=== PATIENT | female | born 1940 | race Caucasian/White ===

== ENCOUNTER 2024-01-20 15:52 | Outpatient (CLI) | payer MEDICARE, OTHER | END 2024-01-20 23:59 | disposition critical access hospital (66) | LOC: EMS 15:52 | DX: M25.551 Pain in right hip (principal); W01.0XXA Fall on same level from slipping, tripping and stumbling without subsequent striking against object, initial encounter; Y93.K1 Activity, walking an animal; Y92.832 Beach as the place of occurrence of the external cause | CPT/HCPCS: A0425; A0429 ==

== ENCOUNTER 2024-01-20 16:03 | Inpatient (IN) | payer MEDICARE, OTHER ==
--- NOTE | 2024-01-20 16:17 | ED Physician Documentation ---
PD HPI LOWER EXT INJURY - Stated complaint Stated Complaint: GLF,R HIP PX - History obtained from History obtained from: Patient, EMS - History of Present Illness PD HPI LOW EXT INJURY LOCATION: Right - Additional information Additional information: 83-year-old woman who says she is medically healthy visiting from [place]. [place] [employer] [place] and her dog pulled her and she fell onto her right hip with moderate pain. No other injuries. PD PAST MEDICAL HISTORY - Present Medications Home Medications: Ambulatory Orders Medication Instructions Recorded Confirmed Furosemide [Lasix] 1 tab PO DAILY 01/20/24 01/20/24 - Allergies Allergies/Adverse Reactions: Allergies Allergy/AdvReac Type Severity Reaction Status Date / Time No Known Drug Allergies Allergy Verified 01/20/24 16:18 - Social History Does the pt smoke?: Yes Smoking Status: Current every day smoker PD ED PE NORMAL - Vitals Vital signs reviewed: Yes - General General: Alert and oriented X 3, No acute distress - Respiratory Respiratory: No respiratory distress - Abdomen Abdomen: Normal bowel sounds, Soft, Non tender - Extremities Extremities: Other (Exquisitely tender about the right hip. She cannot range it at all due to pain.) - Neuro Neuro: Alert and oriented X 3 Results - Vitals Vitals: Vital Signs - 24 hr 01/20/24 01/20/24 16:11 18:13 Temperature 36.4 C L Heart Rate 65 67 Respiratory 14 16 Rate Blood Pressure 143/56 H 132/57 H O2 Saturation 100 95 Oxygen O2 Source Room air - EKG (time done) 1739 EKG releavant findings:: EKG personally interpreted by author of this note. Relevant findings are: Rate: Rate (enter#) (78) Rhythm: NSR, ASHUTOSH Bivins: RAD Intervals: Normal HI QRS: Normal Ischemia: Non specific changes - Labs Labs: Laboratory Tests 01/20/24 01/20/24 01/20/24 17:05 17:05 17:05 WBC 9.2 RBC 4.52 Hgb 13.3 Hct 42.5 MCV 94.0 MCH 29.4 MCHC 31.3 L RDW 13.7 Plt Count 309 MPV 11.0 H Neut # (Auto) 5.9 Lymph # (Auto) 2.3 Kane # (Auto) 0.8 Eos # (Auto) 0.1 Baso # (Auto) 0.1 Absolute Nucleated RBC 0.00 Nucleated RBC % 0.0 PT 11.5 INR 1.0 Sodium 137 Potassium 3.9 Chloride 105 Carbon Dioxide 24 Anion Gap 8.0 BUN 16 Creatinine 0.9 Estimated GFR (MDRD) 60 L Glucose 103 Calcium 9.8 Total Bilirubin 0.6 AST 12 ALT 6 L Alkaline Phosphatase 46 Total Protein 7.3 Albumin 4.1 Globulin 3.2 Albumin/Globulin Ratio 1.3 - Rads (name of study) Right hip x-ray demonstrates a displaced and comminuted right femoral neck fracture Relevant Findings:: Final report received, EMP independent interpretation of test PD Medical Decision Making - ED course ED course: This is a 83-year-old woman who had a fall and has an isolated right hip injury with fracture on CT. Spoke with Dr Grant, orthopedist who defers to medicine for admission. We are at shift change so I will call them after shift change. Workup in the emergency department demonstrated unremarkable CBC, INR, and CMP. She received initially on oxycodone and then after x-ray wanted something stronger and received IV Dilaudid with improvement in her pain. Subsequently I am informed that there are no inpatient beds available and she is boarding in the emergency department overnight pending surgery in the morning. Dr Grant did request that we order a CT of the pelvis to better evaluate the fracture preoperatively. Departure - Departure Disposition: [facility] DC/Xfer Clinical Impression: Fractured femoral neck Qualifiers: Encounter type: initial encounter Fracture type: closed Laterality: right Qualified Code(s): S72.001A - Fracture of unspecified part of neck of right femur, initial encounter for closed fracture Condition: Serious
[2024-01-20] MEDS: oxyCODONE 5 MG TABLET PO STA (16:45)
--- NOTE | 2024-01-20 16:47 | XRAY Report ---
PROCEDURE: Hip w/Pelvis 2-3V RT INDICATIONS: hip inj TECHNIQUE: 2 views of the hip were acquired. COMPARISON: None. FINDINGS: Bones: Displaced and comminuted fracture of the right femoral neck, possibly intertrochanteric. Ther e is superior displacement of the distal fracture fragment. Diffusely decreased osseous position. Deg enerative changes of the visualized lower lumbar spine and pubic symphysis. No suspicious bony lesion s. Soft tissues: No suspicious soft tissue calcifications or masses. IMPRESSION: Displaced and comminuted right femoral neck fracture. Reviewed by: Joe Zhong MD on 01/20/2024 4:46 PM PDT Approved by: Joe Zhong MD on 01/20/2024 4:46 PM PDT Station ID: [id number]
[2024-01-20 17:15] LABS: BASOPHILS # (AUTO) 0.1 10^3/uL (0.0-0.1); EOSINOPHILS # (AUTO) 0.1 10^3/uL (0.0-0.7); EOSINOPHILS % (AUTO) 1.4 %; HCT - HEMATOCRIT 42.5 % (37.0-47.0); HGB - HEMOGLOBIN 13.3 g/dL (12.0-16.0); LYMPHOCYTES # (AUTO) 2.3 10^3/uL (1.5-3.5); LYMPHOCYTES % (AUTO) 25.2 %; MEAN CORPUSCULAR HEMOGLOBIN 29.4 pg (27.0-31.0); MEAN CORPUSCULAR HGB CONC 31.3 g/dL (32.0-36.0); MONOCYTES # (AUTO) 0.8 10^3/uL (0.0-1.0); MONOCYTES % (AUTO) 8.7 %; NEUTROPHILS # (AUTO) 5.9 10^3/uL (1.5-6.6); NEUTROPHILS % (AUTO) 63.5 %; PLT - PLATELET COUNT 309 10^3/uL (130-450); RED BLOOD COUNT 4.52 10^6/uL (4.20-5.40); RED CELL DISTRIBUTION WIDTH 13.7 % (12.0-15.0); WHITE BLOOD COUNT 9.2 x10^3/uL (4.8-10.8)
[2024-01-20 17:22] LABS: PT - PROTHROMBIN TIME 11.5 secs (9.9-12.6)
[2024-01-20 17:34] LABS: ALBUMIN 4.1 g/dL (3.2-5.5); ALBUMIN/GLOBULIN RATIO 1.3 (1.0-2.2); BILIRUBIN,TOTAL 0.6 mg/dL (0.2-1.0); CALCIUM 9.8 mg/dL (8.5-10.3); CREATININE 0.9 mg/dL (0.6-1.3); POTASSIUM 3.9 mmol/L (3.5-4.5); TOTAL PROTEIN 7.3 g/dL (6.4-8.9)
[2024-01-20] MEDS: HYDROmorphone 1 MG/ML CARPUJECT IVP STA (17:47)
[2024-01-20] MEDS ORDERED: ACETAMINOPHEN 500 MG TABLET PO PRN (18:55)
--- NOTE | 2024-01-20 19:43 | CT Report ---
PROCEDURE: Pelvis WO INDICATIONS: Hip fracture, surgeons request TECHNIQUE: Noncontrast 3 mm axial sections acquired through the bony pelvis. For radiation dose reduction, the f ollowing was used: automated exposure control, adjustment of mA and/or kV according to patient size. COMPARISON: Right hip radiographs 01/20/2024. FINDINGS: Image quality: Excellent. Bones: There is a comminuted mildly displaced intertrochanteric fracture of the right proximal femur with angulation and mild displacement of fracture fragments. No additional osseous fracture identifi ed. Bones are osteopenic. Degenerative changes are seen in the spine, sacral iliac joints, hips, and pubic symphysis. 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 Soft tissues: Soft tissue edema and hemorrhage are seen surrounding the proximal femur extending int o the vastus musculature. No acute intrapelvic abnormality is seen. Mild ectasia of the abdominal aor ta measuring up to 2.7 cm in diameter. IMPRESSION: Comminuted mildly displaced intertrochanteric fracture of the right proximal femur. Reviewed by: Amador Hackett MD on 01/20/2024 7:41 PM PDT Approved by: Amador Hackett MD on 01/20/2024 7:41 PM PDT Station ID: [id number]
[2024-01-20] MEDS: HYDROmorphone 1 MG/ML CARPUJECT IVP PRN (20:50)
--- NOTE | 2024-01-20 21:32 | HISTORY & PHYSICAL EXAMINATION ---
HPI - Admitted From Admitted from: ED - History Obtained From History obtained from: Patient Exam limitations: Clinical condition - History of Present Illness HPI Comment/Other: This is a 83-year-old woman admitted because of a fall, inability to bear weight on right leg with pain being quite marked in the right groin and upper thigh. She was walking her dog and took a fall on the beach. She has been evaluated in the emergency room, does not seem to recall the name of the beach. She states that she lives with her son. She has been in relatively good health but has been a chronic smoker for many years and has been quite thin. She is an ambulator. She denies any other areas of pain other than the right hip. She denies chest pain, shortness of breath, syncope or loss of consciousness associated with the fall. She describes a mechanical type fall associated with dog walkingI PMH/PSH - Past Medical History Cardiovascular: positive: Congestive heart failure Respiratory: positive: None Neuro: positive: None Endocrine/Autoimmune: positive: None GI: positive: None VIRTUAL ASSISTANT: positive: None : positive: None HEENT: positive: None Psych: positive: None Musculoskeletal: positive: None Derm: positive: None MRSA Hx?: No Social & Family Hx - Social History Does the pt smoke?: Yes Smoking Status: Current every day smoker Does the pt drink ETOH?: Yes ETOH Use: Wine Does the pt have substance abuse?: No - POLST Patient has POLST: No Meds/Allgy - Home Medications Home Medications: Ambulatory Orders Medication Instructions Recorded Confirmed Furosemide [Lasix] 1 tab PO DAILY 01/20/24 01/20/24 - Allergies Allergies/Adverse Reactions: Allergies Allergy/AdvReac Type Severity Reaction Status Date / Time No Known Drug Allergies Allergy Verified 01/20/24 16:18 Exam - Vital Signs Vital Signs: Vital Signs x48h Temp Pulse Resp BP Pulse Ox 01/20/24 18:13 67 16 132/57 H 95 01/20/24 16:11 36.4 C L 65 14 143/56 H 100 - Physical Exam General Appearance: positive: Alert, Mild distress Respiratory: positive: Chest non-tender, No respiratory distress Cardiovascular: positive: Regular rate & rhythm Peripheral Pulses: positive: 1+ Abdomen: positive: Non-tender Neurologic/Psychiatric: positive: Motor nml, Sensation nml, Disoriented to place Comments/Other: The right leg is shortened, externally rotated, marked pain with any attempted passive movement of right hip. Neurovascular is intact, pulses reduced but neurovascular compromise to the right footShe has reduced body mass index and sarcopenia Results - Lab Results Fish Bones: 01/20/24 17:05 01/20/24 17:05 Other Lab Results: Lab Results x24hrs 01/20/24 01/20/24 01/20/24 Range/Units 17:05 17:05 17:05 WBC 9.2 (4.8-10.8) x10^3/uL RBC 4.52 (4.20-5.40) 10^6/uL Hgb 13.3 (12.0-16.0) g/dL Hct 42.5 (37.0-47.0) % MCV 94.0 (81.0-99.0) fL MCH 29.4 (27.0-31.0) pg MCHC 31.3 L (32.0-36.0) g/dL RDW 13.7 (12.0-15.0) % Plt Count 309 (130-450) 10^3/uL MPV 11.0 H (7.9-10.8) fL Neut # (Auto) 5.9 (1.5-6.6) 10^3/uL Lymph # (Auto) 2.3 (1.5-3.5) 10^3/uL [place] # (Auto) 0.8 (0.0-1.0) 10^3/uL Eos # (Auto) 0.1 (0.0-0.7) 10^3/uL Baso # (Auto) 0.1 (0.0-0.1) 10^3/uL Absolute Nucleated RBC 0.00 x10^3/uL Nucleated RBC % 0.0 /100WBC PT 11.5 (9.9-12.6) secs INR 1.0 (0.8-1.2) Sodium 137 (135-145) mmol/L Potassium 3.9 (3.5-4.5) mmol/L Chloride 105 (101-111) mmol/L Carbon Dioxide 24 (21-32) mmol/L Anion Gap 8.0 (6-13) BUN 16 (6-20) mg/dL Creatinine 0.9 (0.6-1.3) mg/dL Estimated GFR (MDRD) 60 L (>89) Glucose 103 (74-104) mg/dL Calcium 9.8 (8.5-10.3) mg/dL Total Bilirubin 0.6 (0.2-1.0) mg/dL AST 12 (10-42) IU/L ALT 6 L (10-60) IU/L Alkaline Phosphatase 46 (42-121) IU/L Total Protein 7.3 (6.4-8.9) g/dL Albumin 4.1 (3.2-5.5) g/dL Globulin 3.2 (2.1-4.2) g/dL Albumin/Globulin Ratio 1.3 (1.0-2.2) - Diagnostic Imaging Results Diagnostic Imaging Results: positive: Read independently (Displaced basilar femoral neck/intertrochanteric fracture right hip) Impression/Plan - Problem List Problem List: 1. Displaced intertrochanteric/basilar femoral neck fracture right hip 2. Chronic cigarette smoker/COPD 3. Low body mass index and sarcopenia Shared decision making performed. This is a serious injury that is generally surgically treated. The risks of surgery are generally felt to be less and the risk of nonoperative treatment. However, the risk include myocardial infarction, stroke, pulmonary embolism, infection, bleeding, weakness and difficulty with ambulation. The patient prefers to undergo surgery which would consist of open reduction internal fixation with an intramedullary hip nail to right hip and femur. She will have preoperative medical evaluation and hopefully be able to have surgery for her right hip tomorrow
[2024-01-21] MEDS: ONDANSETRON 4 MG/2 ML VIAL IVP PRN ×2 (01:00→14:16)
[2024-01-21] MEDS: oxyCODONE 5 MG TABLET PO PRN ×2 (01:11→19:50)
[2024-01-21] MEDS: SODIUM CHLORIDE 0.9% 1,000 ML IV STA (01:12)
--- NOTE | 2024-01-21 04:46 | ED Physician Documentation ---
ED Addendum - Addendum Addendum: 01/21/24 Patient care assumed at shift change. She is boarding in the emergency department with a hip fracture and awaiting available admission bed with plans for surgery in the morning. Patient started on maintenance fluids as she is NPO. No acute events overnight. Patient signed out to oncoming provider at shift change.
[2024-01-21] MEDS: LIDOCAINE PATCH 5% TOP STA (06:53)
[2024-01-21] MEDS: PANTOPRAZOLE 40 MG TABLET PO SCH (07:38)
--- NOTE | 2024-01-21 08:02 | ANESTHESIA ---
Pre-Anesthesia VS, & Labs - Diagnosis Hip Fracture - Procedure Right Wil Fracture Vital Signs: Temp Pulse Resp BP Pulse Ox O2 Flow Rate 36.4 C L 70 12 144/61 H 100 2 01/20/24 16:11 01/21/24 06:56 01/21/24 06:56 01/21/24 06:56 01/21/24 06:56 01/21/24 06:56 Height: 5 ft 4 in Weight (kg): 48.988 kg Body Mass Index: 18.5 BMI Classification: Normal - Is Patient ?: No - Lab Results Current Lab Results: Laboratory Tests 01/20/24 17:05: Sodium 137, Potassium 3.9, Chloride 105, Carbon Dioxide 24, Anion Gap 8.0, BUN 16, Creatinine 0.9, Estimated GFR (MDRD) 60 L, Glucose 103, Calcium 9.8, Total Bilirubin 0.6, AST 12, ALT 6 L, Alkaline Phosphatase 46, Tot al Protein 7.3, Albumin 4.1, Globulin 3.2, Albumin/Globulin Ratio 1.3 01/20/24 17:05: PT 11.5, INR 1.0 01/20/24 17:05: WBC 9.2, RBC 4.52, Hgb 13.3, Hct 42.5, MCV 94.0, MCH 29.4, MCHC 31.3 L, RDW 13.7, Plt Count 309, MPV 11.0 H, Neut # (Auto) 5.9, Lymph # (Auto) 2.3, [place] # (Auto) 0.8, Eos # (Auto) 0.1, Baso # (Auto) 0.1, Absolute Nucleated RBC 0.00, Nucleated RBC % 0.0 Fish Bones: 01/20/24 17:05 01/20/24 17:05 Home Medications and Allergies Home Medications: Ambulatory Orders Furosemide [Lasix] 1 tab PO DAILY 01/20/24 Active Medications Acetaminophen (Acetaminophen 500 Mg Tablet) 1,000 mg PO Q6H PRN PRN Reason: Mild Pain Or Fever>38c(100.4f) Hydromorphone HCl (Hydromorphone 1 Mg/Ml Carpuject) 1 mg IVP Q2H PRN PRN Reason: pain >4 Last Admin: 01/21/24 05:18 Dose: 1 mg Sodium Chloride (Normal Saline 0.9%) 1,000 mls @ 100 mls/hr IV .Q10H STA Stop: 01/21/24 11:03 Last Admin: 01/21/24 01:12 Dose: 100 mls/hr Ondansetron HCl (Ondansetron 4 Mg/2 Ml Vial) 4 mg IVP Q6HR PRN PRN Reason: Nausea / Vomiting Last Admin: 01/21/24 01:00 Dose: 4 mg Oxycodone HCl (Oxycodone 5 Mg Tablet) 5 mg PO Q6H PRN PRN Reason: Moderate to Severe pain (4-10) Last Admin: 01/21/24 01:27 Dose: 5 mg Pantoprazole Sodium (Pantoprazole 40 Mg Tablet) 40 mg PO QDAC LINDSAY Last Admin: 01/21/24 07:38 Dose: Not Given Furosemide [Lasix] 1 tab PO DAILY 01/20/24 Allergies/Adverse Reactions: Allergies Allergy/AdvReac Type Severity Reaction Status Date / Time No Known Drug Allergies Allergy Verified 01/20/24 16:18 Anes History & Medical History - Anesthetic History Family history of Anesthesia Complications: Denies - Medical History Cardiovascular: reports: Congestive heart failure Pulmonary: reports: None Gastrointestinal: reports: None Urinary: reports: None Neuro: reports: None Musculoskeletal: reports: None Endocrine/Autoimmune: reports: None Blood Disorders: reports: None Skin: reports: None Smoking Status: Current every day smoker Other Past Medical History: States Cyst removal in past Exam General: Alert, Oriented x3, Cooperative Dental: Dentures full Upper, Dentures full Lower Mouth Openin Fingerbreadth Mallampati classification: II Thyromental Distance: 4-6 cm (Acting appropriatley given condition.) Plan Anesthesia Type: Spinal, MAC Consent for Procedure(s) Verified and Reviewed: Yes Code Status: Attempt Resuscitation ASA classification: 3-Severe systemic disease Is this case an emergency?: No
[2024-01-21] MEDS ORDERED: fentaNYL 100 MCG/2 ML VIAL IVP PRN ×2 (08:05→13:16)
[2024-01-21] MEDS ORDERED: ATROPINE ABBOJECT 1 MG/10 ML SYRINGE IVP PRN ×2 (08:05→13:16)
[2024-01-21] MEDS ORDERED: NALOXONE 0.4 MG/ML VIAL IVP PRN ×2 (08:05→13:16)
[2024-01-21] MEDS ORDERED: ePHEDrine 50 MG/ML VIAL IVP PRN ×2 (08:05→13:16)
[2024-01-21] MEDS ORDERED: MORPHINE 2 MG/ML CARPUJECT IVP PRN ×2 (08:05→13:16)
[2024-01-21] MEDS: LACTATED RINGERS 1,000 ML IV SCH (09:57)
[2024-01-21] MEDS ORDERED: BUPIVACAINE 0.25% PF 30 ML VIAL ONE (11:03)
[2024-01-21] MEDS ORDERED: PROPOFOL 500 MG/50 ML 500 MG/50 ML VIAL ONE (11:12)
--- NOTE | 2024-01-21 11:12 | PHARMACY PROGRESS NOTE ---
- Best Possible Medication History Admit Date and Time: Processed by: Pharmacy Medications reviewed in ED?: Yes Medication History completed: Yes Patient Interview: Pt unable to participate Secondary Source(s): Pharmacy records As the person ultimately responsible for medication therapy, providers are able to order a medication from an existing home medication list in [facility] via the "Reconcile Routine" prior to Confirmation of that medication by it support manager. Such practice is discouraged except when the physician, in their clinical judgment, deems that a medical need exists for a medication without regard to p revious use.
[2024-01-21] MEDS ORDERED: PROPOFOL 200 MG/20 ML VIAL IVP ONE (11:28)
--- NOTE | 2024-01-21 11:43 | ED Physician Documentation ---
ED Addendum - Addendum Addendum: 01/21/24 11:42 The patient had been comfortable here in the ER. She was slated for surgery for repair of her hip. The OR team and anesthesia preop to her and she is just now heading to the OR for surgery and then will go to the floor for inpatient. Disposition: Same-day surgery for hip repair Diagnosis: 1. Unintentional fall 2. Hip fracture
[2024-01-21] MEDS ORDERED: ceFAZolin 1 GM VIAL ONE (11:52)
[2024-01-21] MEDS ORDERED: ePHEDrine 50 MG/ML VIAL IVP ONE ×2 (12:24→12:25)
[2024-01-21] MEDS ORDERED: PHENYLEPHRINE HCL 0.5 MG/5 ML AMPULE ONE (12:25)
[2024-01-21] MEDS ORDERED: TRANEXAMIC ACID 1,000 MG/10 ML VIAL ONE (12:26)
[2024-01-21] MEDS ORDERED: PHENYLEPHRINE 20 MG in SODIUM CHLORIDE 0.9% 248 ML IV STA (12:48)
[2024-01-21] MEDS ORDERED: HYDROmorphone 0.5 MG/0.5 ML SYRINGE IVP PRN (13:16)
[2024-01-21] MEDS ORDERED: METOCLOPRAMIDE 10 MG/2 ML VIAL IVP PRN (13:16)
[2024-01-21] MEDS ORDERED: ONDANSETRON 4 MG/2 ML VIAL IVP PRN ×2 (13:16→13:48)
[2024-01-21] MEDS: LACTATED RINGERS 1,000 ML IV ONE ×2 (13:33→13:45)
[2024-01-21] MEDS ORDERED: fentaNYL 250 MCG/5 ML VIAL IVP PRN (13:48)
--- NOTE | 2024-01-21 13:54 | OPERATIVE REPORT ---
Operative Report - General Procedure Date: 01/21/24 Planned Procedure: Open reduction internal fixation right hip and proximal femur Pre-Op Diagnosis: Displaced peritrochanteric fracture right hip Procedure Performed: Open reduction internal fixation right hip fracture with [employer] InterTAN integrated nail hip screw: 11.5 x 180 mm short intramedullary gaston with 95 mm lag screw, 90 mm compression screw, 5 x 32 mm distal locking screw Post Op Diagnosis: Same as preoperative diagnosis - Procedure Note Primary Surgeon: Ismael Grant MD Secondary Surgeon: Juli Huang PAC Anesthesia Provider: Edmar Chavarria CRNA Anesthesia Technique: Spinal Estimated Blood Loss (mL): 50 Indications: This is a 83-year-old ambulatory woman who took a fall yesterday, ground-level with subsequent pain and inability to bear weight right leg. Her pain was in the groin and upper thigh. She lives with her son. She has not had any previous problems the right hip. She does have low body mass index and is a chronic cigarette smoker but denies any major medical problems such as myocardial infarction stroke, pulmonary embolus or cancer. Her exam showed shortening and external rotation deformity to the right leg, marked pain with any passive motion right hip, neurovascular was intact. Her x-ray showed a peritrochanteric fracture involving the base of the neck and trochanter on the right hip. Both routine and CT scan had been obtained. She had been evaluated medically in the emergency room. Shared decision making was performed. The risks, goals and likelihood of achieving goals, alternatives surgery and consequences, disability and rarely were discussed The patient was agreement to surgical repair of her right hip fracture Findings: There is a displaced basilar femoral neck and trochanteric fracture with some comminution of the calcar of the right hip area. Complications: None - Other Other Information/Narrative: After satisfactory spinal anesthesia was achieved, the patient was transferred to the [place] fracture table in the supine position. Boot traction was applied to the right foot and well-leg alexandra to the nonoperative leg leg. Traction was applied to the left leg through the boot with the patella facing superiorly and the hip in a neutral position with regard to abduction and adduction and hip flexion/extension. The C-arm was used to assess the reduction and showed excellent alignment on both AP and lateral views. The right hip was then prepped and draped in a sterile manner in the usual fashion using a vertical [place] transparent barrier. A 4 cm incision was made in line with the greater trochanter but proximal to the greater trochanter. The subcutaneous tissue and fascia were split. A starting bone all was used to engage the trochanteric fossa at its most lateral edge. The starting awl was impacted to lesser trochanter and a guidepin was then inserted. The position of the guidepin was confirmed on both AP and lateral views. Reaming was then carried out with the starting reamer. The 11.5 mm diameter gaston and guide was then utilized to insert the gaston through the trochanteric area and pushed distally using C-arm image intensifier and biplanar mode. The leg screw guidepin was inserted through a separate incision more distal. This was inserted in the proximate midline in both AP and lateral C arm images. The depth of the guidepin was 97 mm. The compression screw drills were then utilized both short and long. The antirotation bar was inserted. The lag screw reamer was then utilized and plac ed over the previously inserted pin to the appropriate depth. The 95 mm lag screw was inserted and the 90 mm compression screw followed achieving nice compression at the fracture site. The alignment of the fracture was very good on both AP and lateral views as well as the fixation. A third incision was made for the distal locking screw. Bicortical fixation was achieved with a 5 X 32 mm cortical screw. The wounds were irrigated. The subcutaneous tissue was closed with 2-0 Vicryl and the skin was closed with 3-0 Monocryl, Dermabond and dry sterile dressings. There is no deformity to the leg. The patient tolerated the procedure well. She did receive 2 g of Ancef prior to the incision.A physician surgical physician assistant was medically necessary to help with prepping and draping, positioning, protection of vital structures, assistance during the procedure including wound closure, dressing and/or splinting.
[2024-01-21] MEDS ORDERED: HYDROmorphone 0.5 MG/0.5 ML SYRINGE ONE (13:55)
[2024-01-21] MEDS: HYDROmorphone 0.5 MG/0.5 ML SYRINGE IVP PRN (13:57)
[2024-01-21] MEDS ORDERED: LACTATED RINGERS 1,000 ML IV SCH (14:00)
--- NOTE | 2024-01-21 14:04 | ANESTHESIA POST OP EVALUATION ---
Anesthesia Post Eval - Post Anesthesia Eval Vitals: Last Vital Signs Temp 36.6 C 01/21/24 13:45 Pulse 82 01/21/24 13:50 Resp 19 01/21/24 13:50 BP 143/51 H 01/21/24 13:50 Pulse Ox 100 01/21/24 13:50 O2 Flow Rate 2 01/21/24 09:00 CV Function Including HR & BP: Stable Pain Control: Satisfactory Nausea & Vomiting: Negative Mental Status: Baseline Respiratory Status: Airway Patent Hydration Status: Satisfactory Anesthesia Complications: None
[2024-01-21] MEDS ORDERED: ONDANSETRON 4 MG/2 ML VIAL ONE (14:10)
[2024-01-21] MEDS ORDERED: DEXAMETHASONE 4 MG/ML VIAL ONE (14:24)
[2024-01-21] MEDS ORDERED: ROPIVACAINE 0.5% PF 20 ML VIAL ONE (14:24)
[2024-01-21] MEDS ORDERED: SODIUM CHLORIDE FLUSH 0.9% 10 ML SYRINGE IVP PRN (14:28)
--- NOTE | 2024-01-21 14:45 | HISTORY & PHYSICAL EXAMINATION ---
Chief Complaint - Chief Complaint Chief Complaint: Fall History of Present Illness - Admitted From Admitted From:: ED - History Obtained From Records Reviewed: Yes - History of Present Illness HPI Comment/Other: Patient is an 83-year-old female with past medical history of tobacco dependence who presented to the ED after suffering a ground-level fall resulting in a right leg injury. Upon presentation to the ED imaging with a pelvic CT was performed which revealed a mildly displaced intertrochanteric fracture of the right proximal femur. Orthopedic surgery was consulted and she was taken to the OR where a ORIF was performed. Patient had an estimated blood loss of 50 mL. Her operative course was unremarkable. Had a discussion with her daughter at bedside. Patient is DNR. She would feel more comfortable with long-term placement on discharge. History - Past Medical History Cardiovascular: reports: Congestive heart failure Respiratory: reports: None Neuro: reports: None Endocrine/Autoimmune: reports: None GI: reports: None RETANNER: reports: None : reports: None HEENT: reports: None Psych: reports: None Musculoskeletal: reports: None Derm: reports: None MRSA Hx?: No Other Past Medical History: States Cyst removal in past - POLST Patient has POLST: No Meds/Allgy - Home Medications Home Medications: Ambulatory Orders Medication Instructions Recorded Confirmed Furosemide [Lasix] 20 mg PO DAILY 01/20/24 01/21/24 - Allergies Allergies/Adverse Reactions: Allergies Allergy/AdvReac Type Severity Reaction Status Date / Time No Known Drug Allergies Allergy Verified 01/20/24 16:18 Review of Systems - Other Findings Other Findings: Unable to assess as patient is post-op. Exam - Vital Signs Reviewed Vital Signs: Yes Vital Signs: Vital Signs x48h Temp Pulse Resp BP Pulse Ox O2 Flow Rate 01/21/24 14:35 83 12 117/46 L 98 01/21/24 14:25 81 13 126/49 L 100 01/21/24 14:15 77 12 135/47 H 100 01/21/24 14:05 77 14 133/52 H 99 01/21/24 14:00 85 16 137/51 H 98 01/21/24 13:55 80 16 154/55 H 98 01/21/24 13:50 82 19 143/51 H 100 01/21/24 13:45 36.6 C 81 18 151/54 H 98 01/21/24 09:00 79 10 L 108/42 L 94 2 06/26/24 06:56 70 12 144/61 H 100 2 - Physical Exam General Appearance: positive: No acute distress Respiratory: positive: Chest non-tender, No respiratory distress, Breath sounds nml Cardiovascular: positive: Regular rate & rhythm, No murmur, No gallop Abdomen: positive: Non-tender, No organomegaly, Nml bowel sounds, No distention Conclusion/Plan - Problem List (1) Fractured femoral neck Conclusion/Plan: --Right-sided femoral neck fracture s/p ORIF on 01/20. -- PT/OT consulted. -- DVT prophylaxis per orthopedic surgery. Qualifiers: Encounter type: initial encounter Fracture type: closed Laterality: right Qualified Code(s): S72.001A - Fracture of unspecified part of neck of right femur, initial encounter for closed fracture (2) Tobacco dependence Conclusion/Plan: --Nicotine patch ordered. - Lab Results Fish Bones: 01/20/24 17:05 01/20/24 17:05
--- NOTE | 2024-01-21 15:55 | XRAY Report ---
PROCEDURE: OR C-Arm Procedure INDICATIONS: ORIF RIGHT HIP FRACTURE FLUORO TIME: 000.5 TECHNIQUE: 2 spot fluoroscopic intraoperative images of the right hip. COMPARISON: Right pelvis radiographs 01/20/2024 FINDINGS: Intraoperative fluoroscopic images demonstrate changes from proximal femoral fracture fixation with a gamma nail type device. Osseous alignment has improved. IMPRESSION: Intraoperative images from proximal femoral fracture fixation with improved alignment. Reviewed by: Amador Hackett MD on 01/21/2024 3:53 PM PDT Approved by: Amador Hackett MD on 01/21/2024 3:53 PM PDT Station ID: [id number]
[2024-01-21] MEDS: ACETAMINOPHEN 325 MG TABLET PO SCH (16:40)
[2024-01-21] MEDS: NS W/20 MEQ KCL 1,000 ML IV SCH (16:40)
[2024-01-21] MEDS ORDERED: ceFAZolin 2 GM VIAL ONE (17:38)
[2024-01-21] MEDS: ceFAZolin (2G) 2 GM in SODIUM CHLORIDE 0.9% MINIBAG 100 ML IV SCH (17:43)
[2024-01-21] MEDS: SODIUM CHLORIDE FLUSH 0.9% 10 ML SYRINGE IVP SCH (17:43)
[2024-01-21] MEDS: ASPIRIN EC 81 MG TABLET PO SCH (20:02)
[2024-01-21] MEDS: CELECOXIB 100 MG CAPSULE PO SCH (20:02)
[2024-01-22] MEDS: ACETAMINOPHEN 500 MG TABLET PO SCH (06:25)
[2024-01-22] MEDS: NICOTINE 7 MG PATCH TOP SCH (08:13)
[2024-01-22 08:16] LABS: BASOPHILS % (AUTO) 0.2 %; HCT - HEMATOCRIT 30.5 % (37.0-47.0); HGB - HEMOGLOBIN 9.5 g/dL (12.0-16.0); LYMPHOCYTES # (AUTO) 1.6 10^3/uL (1.5-3.5); LYMPHOCYTES % (AUTO) 12.6 %; MEAN CORPUSCULAR HEMOGLOBIN 29.3 pg (27.0-31.0); MEAN CORPUSCULAR HGB CONC 31.1 g/dL (32.0-36.0); MEAN CORPUSCULAR VOLUME 94.1 fL (81.0-99.0); MEAN PLATELET VOLUME 10.4 fL (7.9-10.8); MONOCYTES # (AUTO) 1.9 10^3/uL (0.0-1.0); MONOCYTES % (AUTO) 14.6 %; NEUTROPHILS # (AUTO) 9.2 10^3/uL (1.5-6.6); NEUTROPHILS % (AUTO) 72.2 %; PLT - PLATELET COUNT 246 10^3/uL (130-450); RED BLOOD COUNT 3.24 10^6/uL (4.20-5.40); RED CELL DISTRIBUTION WIDTH 13.4 % (12.0-15.0); WHITE BLOOD COUNT 12.7 x10^3/uL (4.8-10.8)
[2024-01-22 08:18] LABS: SLIDE REVIEW? Indicated
[2024-01-22 08:36] LABS: PLATELET ESTIMATE, MANUAL NORMAL (130-450,000) (NORMAL); PLATELET MORPHOLOGY NORMAL APPEARANCE (NORMAL)
[2024-01-22 08:37] LABS: RBC MORPHOLOGY (MULTIPLE) NORMAL APPEARANCE (NORMAL)
[2024-01-22 08:39] LABS: CREATININE 0.9 mg/dL (0.6-1.3); POTASSIUM 4.7 mmol/L (3.5-4.5)
--- NOTE | 2024-01-22 10:56 | PROVIDER PROGRESS NOTE ---
Assessment/Plan - Problem List (1) Fractured femoral neck Qualifiers: Encounter type: initial encounter Fracture type: closed Laterality: right Qualified Code(s): S72.001A - Fracture of unspecified part of neck of right femur, initial encounter for closed fracture Assessment/Plan: (1) Fractured femoral neck Conclusion/Plan: --Right-sided femoral neck fracture s/p ORIF on 01/20. -- PT/OT consulted. -- DVT prophylaxis per orthopedic surgery. Currently on ASA. (2) Tobacco dependence Conclusion/Plan: --Nicotine patch ordered. (3) Hypoxia Assessment/Plan: --Currently on 2L via [place]. Will order a CXR. --FARM MANAGER ordered as she does have difficulty with fluids. - Current Meds Current Meds: Current Medications Generic Name Dose Route Start Last Admin Trade Name Freq PRN Reason Stop Dose Admin Acetaminophen 1,000 mg 01/22/24 06:00 01/22/24 06:25 Acetaminophen 500 Mg Tablet PO 1,000 mg TID LINDSAY Administration Aspirin 81 mg 01/21/24 21:00 01/22/24 08:12 Aspirin Ec 81 Mg Tablet PO 81 mg BID LINDSAY Administration Celecoxib 200 mg 01/21/24 21:00 01/22/24 08:11 Celecoxib 100 Mg Capsule PO 200 mg BID LINDSAY Administration Hydromorphone HCl 1 mg 01/20/24 18:55 01/22/24 00:41 Hydromorphone 1 Mg/Ml Carpuject IVP 1 mg Q2H PRN Administration pain >4 Nicotine 1 patch 01/22/24 09:00 01/22/24 08:13 Nicotine 7 Mg Patch TOP 1 patch DAILY LINDSAY Administration Oxycodone HCl 5 mg 01/21/24 13:48 01/21/24 19:50 Oxycodone 5 Mg Tablet PO 5 mg Q6HR PRN Administration Severe Breakthrough pain(8-10) Pantoprazole Sodium 40 mg 01/21/24 07:00 01/22/24 06:25 Pantoprazole 40 Mg Tablet PO 40 mg QDAC LINDSAY Administration Sodium Chloride 10 ml 01/21/24 17:00 01/22/24 08:11 Sodium Chloride Flush 0.9% 10 Ml Syringe IVP 10 ml 0100,0900,1700 LINDSAY Administration - Lab Result Fish Bone Diagrams: 01/22/24 08:10 01/22/24 08:10 - Additional Planning My Orders: My Active Orders 01/21/24 14:28 IO [RC] IOSHIFT Incentive Spirometry - RT [RC] .tid Initiate Bowel Care Protocol [RC] .protocol Initiate Line Care Protocol [RC] QSHIFT Initiate Personal Care Protoco [RC] .protocol Oxygen Therapy [RC] .PRN Sodium Chloride Flush 0.9% [Normal Saline Flush 0.9%] 10 ml IVP PRN PRN Code Status [OTHERS] Routine Condition of Patient [OTHERS] Routine DVT Prophylaxis [OTHERS] Routine 01/21/24 Dinner Regular Diet [DIET] 01/21/24 17:00 Sodium Chloride Flush 0.9% [Normal Saline Flush 0.9%] 10 ml IVP 0100,0900,1700 01/22/24 Clinical Swallow Evaluation [ST] Routine 01/22/24 09:00 Nicotine 7 mg Patch [Nicoderm] 1 patch TOP DAILY 01/23/24 05:00 BMP - BASIC METABOLIC PANEL [CHEM] DAILYLAB CBC [CBC - COMP BLD CT W/AUTO DIFF] [HEME] DAILYLAB 01/24/24 05:00 BMP - BASIC METABOLIC PANEL [CHEM] DAILYLAB CBC [CBC - COMP BLD CT W/AUTO DIFF] [HEME] DAILYLAB 01/25/24 05:00 BMP - BASIC METABOLIC PANEL [CHEM] DAILYLAB CBC [CBC - COMP BLD CT W/AUTO DIFF] [HEME] DAILYLAB 01/26/24 05:00 BMP - BASIC METABOLIC PANEL [CHEM] DAILYLAB CBC [CBC - COMP BLD CT W/AUTO DIFF] [HEME] DAILYLAB 01/27/24 05:00 BMP - BASIC METABOLIC PANEL [CHEM] DAILYLAB CBC [CBC - COMP BLD CT W/AUTO DIFF] [HEME] DAILYLAB Subjective - Subjective Patient Reports: Other (On 2L via [place]. Plan is to do PT/OT today. On going concern for possible urinary retention.) Objective Vital Signs: Vital Signs - 24 hr 01/21/24 01/21/24 01/21/24 13:45 13:50 13:55 Temperature 36.6 C Heart Rate 81 82 80 Heart Rate [ Brachial] Respiratory 18 19 16 Rate Blood Pressure 151/54 H 143/51 H 154/55 H Blood Pressure [Right Brachial artery] O2 Saturation 98 100 98 If not protocol : Oxygen Flow, liters/minute 01/21/24 01/21/24 01/21/24 14:00 14:05 14:15 Temperature Heart Rate 85 77 77 Heart Rate [ Brachial] Respiratory 16 14 12 Rate Blood Pressure 137/51 H 133/52 H 135/47 H Blood Pressure [Right Brachial artery] O2 Saturation 98 99 100 If not protocol : Oxygen Flow, liters/minute 01/21/24 01/21/24 01/21/24 14:25 14:35 14:45 Temperature Heart Rate 81 83 85 Heart Rate [ Brachial] Respiratory 13 12 12 Rate Blood Pressure 126/49 L 117/46 L 132/45 H Blood Pressure [Right Brachial artery] O2 Saturation 100 98 100 If not protocol : Oxygen Flow, liters/minute 01/21/24 01/21/24 01/21/24 15:00 15:05 16:18 Temperature 36.6 C 37.4 C Heart Rate 88 Heart Rate [ 82 Brachial] Respiratory 15 18 Rate Blood Pressure 128/42 L Blood Pressure 134/47 H [Right Brachial artery] O2 Saturation 95 95 If not protocol 2 3 : Oxygen Flow, liters/minute 01/21/24 01/22/24 01/22/24 20:18 00:00 05:15 Temperature 37.1 C 37.5 C 371 C H Heart Rate Heart Rate [ 96 97 94 Brachial] Respiratory 14 18 16 Rate Blood Pressure Blood Pressure 133/47 H 144/54 H 122/49 L [Right Brachial artery] O2 Saturation 92 92 94 If not protocol 2 2 : Oxygen Flow, liters/minute 01/22/24 01/22/24 08:00 08:08 Temperature 36.9 C Heart Rate Heart Rate [ 89 Brachial] Respiratory 16 Rate Blood Pressure Blood Pressure 119/53 L [Right Brachial artery] O2 Saturation 92 If not protocol 1.5 1.5 : Oxygen Flow, liters/minute Oxygen O2 Source Nasal cannula I&O (Last 24 Hrs): Intake and Output Totals x24h 01/20/24 01/21/24 01/22/24 23:59 23:59 23:59 Intake Total 2500 830 Output Total 150 325 Balance 2350 505 General: Alert, Oriented x3, Cooperative, No acute distress Neuro: Alert, CN 2-12 Grossly Intact, Oriented Times 3 Cardiovascular: Regular rate, Normal S1, Normal S2, No murmurs Respiratory: Chest non-tender, No respiratory distress, Breath sounds nml Abdomen: Normal bowel sounds, Soft, No tenderness, No hepatospenomegaly, No masses - Results Results: Laboratory Results WBC 12.7 x10^3/uL (4.8-10.8) H 01/22/24 08:10 RBC 3.24 10^6/uL (4.20-5.40) L 01/22/24 08:10 Hgb 9.5 g/dL (12.0-16.0) L 01/22/24 08:10 Hct 30.5 % (37.0-47.0) L 01/22/24 08:10 MCV 94.1 fL (81.0-99.0) 01/22/24 08:10 MCH 29.3 pg (27.0-31.0) 01/22/24 08:10 MCHC 31.1 g/dL (32.0-36.0) L 01/22/24 08:10 RDW 13.4 % (12.0-15.0) 01/22/24 08:10 Plt Count 246 10^3/uL (130-450) 01/22/24 08:10 MPV 10.4 fL (7.9-10.8) 01/22/24 08:10 Neut # (Auto) 9.2 10^3/uL (1.5-6.6) H 01/22/24 08:10 Lymph # (Auto) 1.6 10^3/uL (1.5-3.5) 01/22/24 08:10 [place] # (Auto) 1.9 10^3/uL (0.0-1.0) H 01/22/24 08:10 Eos # (Auto) 0.0 10^3/uL (0.0-0.7) 01/22/24 08:10 Baso # (Auto) 0.0 10^3/uL (0.0-0.1) 01/22/24 08:10 Absolute Nucleated RBC 0.00 x10^3/uL 01/22/24 08:10 Nucleated RBC % 0.0 /100WBC 01/22/24 08:10 Manual Slide Review Indicated 01/22/24 08:10 WBC Morphology (NORMAL) 01/22/24 08:10 Platelet Estimate NORMAL (130-450,000) (NORMAL) 01/22/24 08:10 Platelet Morphology NORMAL APPEARANCE (NORMAL) 01/22/24 08:10 RBC Morph Micro Appear NORMAL APPEARANCE (NORMAL) 01/22/24 08:10 PT 11.5 secs (9.9-12.6) 01/20/24 17:05 INR 1.0 (0.8-1.2) 01/20/24 17:05 Sodium 137 mmol/L (135-145) 01/22/24 08:10 Potassium 4.7 mmol/L (3.5-4.5) H 01/22/24 08:10 Chloride 108 mmol/L (101-111) 01/22/24 08:10 Carbon Dioxide 27 mmol/L (21-32) 01/22/24 08:10 Anion Gap 2.0 (6-13) L 01/22/24 08:10 BUN 24 mg/dL (6-20) H 01/22/24 08:10 Creatinine 0.9 mg/dL (0.6-1.3) 01/22/24 08:10 Estimated GFR (MDRD) 60 (>89) L 01/22/24 08:10 Glucose 136 mg/dL (74-104) H 01/22/24 08:10 Calcium 9.0 mg/dL (8.5-10.3) 01/22/24 08:10 Total Bilirubin 0.6 mg/dL (0.2-1.0) 01/20/24 17:05 AST 12 IU/L (10-42) 01/20/24 17:05 ALT 6 IU/L (10-60) L 01/20/24 17:05 Alkaline Phosphatase 46 IU/L (42-121) 01/20/24 17:05 Total Protein 7.3 g/dL (6.4-8.9) 01/20/24 17:05 Albumin 4.1 g/dL (3.2-5.5) 01/20/24 17:05 Globulin 3.2 g/dL (2.1-4.2) 01/20/24 17:05 Albumin/Globulin Ratio 1.3 (1.0-2.2) 01/20/24 17:05
--- NOTE | 2024-01-22 11:58 | XRAY Report ---
PROCEDURE: Chest 1V INDICATIONS: New cough, r/o PNA, atalectasis TECHNIQUE: One view of the chest was acquired. COMPARISON: None. FINDINGS: Surgical changes and devices: None. Lungs and pleura: No pleural effusions or pneumothorax. Lungs are clear. Lungs are hyperinflated suggestive COPD. Mediastinum: Mediastinal contours appear normal. Heart size is mildly prominent. Bones and chest wall: No suspicious bony lesions. Overlying soft tissues appear unremarkable. IMPRESSION: No acute cardiopulmonary process. Reviewed by: Ariella Hughes MD on 01/22/2024 11:57 AM PDT Approved by: Ariella Hughes MD on 01/22/2024 11:57 AM PDT Station ID: [id number]
--- NOTE | 2024-01-22 13:01 | PROVIDER PROGRESS NOTE ---
Subjective - General Admit Date: 01/21/24 Procedure Date: 01/21/24 Post Op Days: 1 - Review of Systems Wound/Incisions: positive: Dressing dry and intact - Other Other Information/Narrative: She is up in a chair and in good spirits. She is alert and oriented, visiting and conversing with her daughter from [place]. She denies chest pain, shortness of breath, nausea or vomiting. Objective - Patient Data Vital Signs: Vital Signs x48h Temp Pulse Resp BP Pulse Ox O2 Flow Rate 01/22/24 08:08 36.9 C 89 16 119/53 L 92 1.5 01/22/24 08:00 1.5 01/22/24 05:15 371 C H 94 16 122/49 L 94 2 Weight: Weight 01/20/24 01/21/24 01/22/24 23:59 23:59 23:59 Weight (kg) 48.988 kg 48.988 kg Intake & Output: Intake and Output Totals x24h 01/20/24 01/21/24 01/22/24 23:59 23:59 23:59 Intake Total 2500 830 Output Total 150 325 Balance 2350 505 - Lab Results Lab Results: 01/22/24 08:10 01/22/24 08:10 Other Lab Results: Lab Results x24hrs 01/22/24 01/22/24 Range/Units 08:10 08:10 WBC 12.7 H (4.8-10.8) x10^3/uL RBC 3.24 L (4.20-5.40) 10^6/uL Hgb 9.5 L (12.0-16.0) g/dL Hct 30.5 L (37.0-47.0) % MCV 94.1 (81.0-99.0) fL MCH 29.3 (27.0-31.0) pg MCHC 31.1 L (32.0-36.0) g/dL RDW 13.4 (12.0-15.0) % Plt Count 246 (130-450) 10^3/uL MPV 10.4 (7.9-10.8) fL Neut # (Auto) 9.2 H (1.5-6.6) 10^3/uL Lymph # (Auto) 1.6 (1.5-3.5) 10^3/uL [place] # (Auto) 1.9 H (0.0-1.0) 10^3/uL Eos # (Auto) 0.0 (0.0-0.7) 10^3/uL Baso # (Auto) 0.0 (0.0-0.1) 10^3/uL Absolute Nucleated RBC 0.00 x10^3/uL Nucleated RBC % 0.0 /100WBC Manual Slide Review Indicated WBC Morphology (NORMAL) Platelet Estimate NORMAL (130-450,000) (NORMAL) Platelet Morphology NORMAL APPEARANCE (NORMAL) RBC Morph Micro Appear NORMAL APPEARANCE (NORMAL) Sodium 137 (135-145) mmol/L Potassium 4.7 H (3.5-4.5) mmol/L Chloride 108 (101-111) mmol/L Carbon Dioxide 27 (21-32) mmol/L Anion Gap 2.0 L (6-13) BUN 24 H (6-20) mg/dL Creatinine 0.9 (0.6-1.3) mg/dL Estimated GFR (MDRD) 60 L (>89) Glucose 136 H (74-104) mg/dL Calcium 9.0 (8.5-10.3) mg/dL - Current Medications Current Medications: Current Medications Generic Name Dose Route Start Last Admin Trade Name Freq PRN Reason Stop Dose Admin Acetaminophen 1,000 mg 01/22/24 06:00 01/22/24 06:25 Acetaminophen 500 Mg Tablet PO 1,000 mg TID LINDSAY Administration Aspirin 81 mg 01/21/24 21:00 01/22/24 08:12 Aspirin Ec 81 Mg Tablet PO 81 mg BID LINDSAY Administration Celecoxib 200 mg 01/21/24 21:00 01/22/24 08:11 Celecoxib 100 Mg Capsule PO 200 mg BID LINDSAY Administration Hydromorphone HCl 1 mg 01/20/24 18:55 01/22/24 00:41 Hydromorphone 1 Mg/Ml Carpuject IVP 1 mg Q2H PRN Administration pain >4 Nicotine 1 patch 01/22/24 09:00 01/22/24 08:13 Nicotine 7 Mg Patch TOP 1 patch DAILY LINDSAY Administration Oxycodone HCl 5 mg 01/21/24 13:48 01/21/24 19:50 Oxycodone 5 Mg Tablet PO 5 mg Q6HR PRN Administration Severe Breakthrough pain(8-10) Pantoprazole Sodium 40 mg 01/21/24 07:00 01/22/24 06:25 Pantoprazole 40 Mg Tablet PO 40 mg QDAC LINDSAY Administration Sodium Chloride 10 ml 01/21/24 17:00 01/22/24 08:11 Sodium Chloride Flush 0.9% 10 Ml Syringe IVP 10 ml 0100,0900,1700 LINDSAY Administration - Physical Exam Comments/Other: Sitting comfortably in chair. Her surgical dressings are dry and intact. Ne urovascular is intact to right leg. Impression/Plan - Problem List Problem List: Status post open reduction internal fixation right hip with intramedullary hip nail, postop day 1 Continue comanage care, physical and Occupational Therapy. Her discharge instructions are to ambulate with a walker, weightbearing as tolerated on the right leg. Her diet is as tolerated. There are no sutures to be removed. She can shower with dressing in place or the dressing can be removed after 5 days from the time of surgery. Her follow-up will depend upon her ability to return to the [facility]. I be happy to recheck her within 6 weeks.
[2024-01-22] MEDS ORDERED: fentaNYL 100 MCG/2 ML VIAL IVP PRN (14:15)
[2024-01-23 06:32] LABS: BASOPHILS # (AUTO) 0.1 10^3/uL (0.0-0.1); BASOPHILS % (AUTO) 0.6 %; EOSINOPHILS # (AUTO) 0.3 10^3/uL (0.0-0.7); EOSINOPHILS % (AUTO) 2.4 %; HGB - HEMOGLOBIN 9.3 g/dL (12.0-16.0); LYMPHOCYTES # (AUTO) 2.5 10^3/uL (1.5-3.5); LYMPHOCYTES % (AUTO) 22.4 %; MEAN CORPUSCULAR HEMOGLOBIN 30.4 pg (27.0-31.0); MEAN CORPUSCULAR HGB CONC 32.1 g/dL (32.0-36.0); MEAN CORPUSCULAR VOLUME 94.8 fL (81.0-99.0); MEAN PLATELET VOLUME 11.5 fL (7.9-10.8); MONOCYTES # (AUTO) 1.3 10^3/uL (0.0-1.0); MONOCYTES % (AUTO) 11.9 %; NEUTROPHILS # (AUTO) 6.8 10^3/uL (1.5-6.6); NEUTROPHILS % (AUTO) 62.3 %; PLT - PLATELET COUNT 231 10^3/uL (130-450); RED BLOOD COUNT 3.06 10^6/uL (4.20-5.40); RED CELL DISTRIBUTION WIDTH 13.7 % (12.0-15.0); WHITE BLOOD COUNT 10.9 x10^3/uL (4.8-10.8)
[2024-01-23 06:37] LABS: CALCIUM 8.5 mg/dL (8.5-10.3); CREATININE 0.8 mg/dL (0.6-1.3); POTASSIUM 4.1 mmol/L (3.5-4.5)
--- NOTE | 2024-01-23 08:38 | PROVIDER PROGRESS NOTE ---
Subjective - General Admit Date: 01/21/24 Procedure Date: 01/21/24 Post Op Days: 2 Procedure Performed: Right hip ORIF with IM Nail and Hip Screws - Review of Systems Wound/Incisions: positive: Dressing dry and intact - Other Other Information/Narrative: Sitting upright in bed eating breakfast, accompanied by her daughter Pain is well controlled with oral analgesics She reports she was up to chair with physical therapy yesterday She denies chest pain, dyspnea, nausea and emesis Objective - Patient Data Reviewed Vital Signs: Yes Vital Signs: Vital Signs x48h Temp Pulse Resp BP Pulse Ox 01/23/24 08:00 36.9 C 83 20 160/66 H 96 01/23/24 05:00 36.6 C 83 18 150/63 H 95 Weight: Weight 01/21/24 01/22/24 01/23/24 23:59 23:59 23:59 Weight (kg) 48.988 kg Intake & Output: Intake and Output Totals x24h 01/21/24 01/22/24 01/23/24 23:59 23:59 23:59 Intake Total 2500 2260 Output Total 150 611 550 Balance 2350 1649 -550 - Lab Results Lab Results: 01/23/24 05:21 01/23/24 05:21 Other Lab Results: Lab Results x24hrs 01/23/24 01/23/24 01/22/24 Range/Units 05:21 05:21 08:10 WBC 10.9 H (4.8-10.8) x10^3/uL RBC 3.06 L (4.20-5.40) 10^6/uL Hgb 9.3 L (12.0-16.0) g/dL Hct 29.0 L (37.0-47.0) % MCV 94.8 (81.0-99.0) fL MCH 30.4 (27.0-31.0) pg MCHC 32.1 (32.0-36.0) g/dL RDW 13.7 (12.0-15.0) % Plt Count 231 (130-450) 10^3/uL MPV 11.5 H (7.9-10.8) fL Neut # (Auto) 6.8 H (1.5-6.6) 10^3/uL Lymph # (Auto) 2.5 (1.5-3.5) 10^3/uL [place] # (Auto) 1.3 H (0.0-1.0) 10^3/uL Eos # (Auto) 0.3 (0.0-0.7) 10^3/uL Baso # (Auto) 0.1 (0.0-0.1) 10^3/uL Absolute Nucleated RBC 0.00 x10^3/uL Nucleated RBC % 0.0 /100WBC WBC Morphology (NORMAL) Platelet Estimate (NORMAL) Platelet Morphology (NORMAL) RBC Morph Micro Appear (NORMAL) Sodium 139 137 (135-145) mmol/L Potassium 4.1 4.7 H (3.5-4.5) mmol/L Chloride 109 108 (101-111) mmol/L Carbon Dioxide 27 27 (21-32) mmol/L Anion Gap 3.0 L 2.0 L (6-13) BUN 18 24 H (6-20) mg/dL Creatinine 0.8 0.9 (0.6-1.3) mg/dL Estimated GFR (MDRD) 68 L 60 L (>89) Glucose 84 136 H (74-104) mg/dL Calcium 8.5 9.0 (8.5-10.3) mg/dL //24 Range/Units 08:10 WBC (4.8-10.8) x10^3/uL RBC (4.20-5.40) 10^6/uL Hgb (12.0-16.0) g/dL Hct (37.0-47.0) % MCV (81.0-99.0) fL MCH (27.0-31.0) pg MCHC (32.0-36.0) g/dL RDW (12.0-15.0) % Plt Count (130-450) 10^3/uL MPV (7.9-10.8) fL Neut # (Auto) 9.2 H (1.5-6.6) 10^3/uL Lymph # (Auto) 1.6 (1.5-3.5) 10^3/uL [place] # (Auto) 1.9 H (0.0-1.0) 10^3/uL Eos # (Auto) 0.0 (0.0-0.7) 10^3/uL Baso # (Auto) 0.0 (0.0-0.1) 10^3/uL Absolute Nucleated RBC 0.00 x10^3/uL Nucleated RBC % 0.0 /100WBC WBC Morphology (NORMAL) Platelet Estimate NORMAL (130-450,000) (NORMAL) Platelet Morphology NORMAL APPEARANCE (NORMAL) RBC Morph Micro Appear NORMAL APPEARANCE (NORMAL) Sodium (135-145) mmol/L Potassium (3.5-4.5) mmol/L Chloride (101-111) mmol/L Carbon Dioxide (21-32) mmol/L Anion Gap (6-13) BUN (6-20) mg/dL Creatinine (0.6-1.3) mg/dL Estimated GFR (MDRD) (>89) Glucose (74-104) mg/dL Calcium (8.5-10.3) mg/dL - Imaging Results Radiology Imaging: positive: Final report received - Current Medications Current Medications: Current Medications Generic Name Dose Route Start Last Admin Trade Name Freq PRN Reason Stop Dose Admin Acetaminophen 1,000 mg 01/22/24 06:00 01/23/24 06:25 Acetaminophen 500 Mg Tablet PO 1,000 mg TID LINDSAY Administration Aspirin 81 mg 01/21/24 21:00 01/22/24 22:47 Aspirin Ec 81 Mg Tablet PO 81 mg BID LINDSAY Administration Celecoxib 200 mg 01/21/24 21:00 01/22/24 22:47 Celecoxib 100 Mg Capsule PO 200 mg BID LINDSAY Administration Hydromorphone HCl 1 mg 01/20/24 18:55 01/22/24 00:41 Hydromorphone 1 Mg/Ml Carpuject IVP 1 mg Q2H PRN Administration pain >4 Nicotine 1 patch 01/22/24 09:00 01/22/24 08:13 Nicotine 7 Mg Patch TOP 1 patch DAILY LINDSAY Administration Oxycodone HCl 5 mg 01/21/24 13:48 01/22/24 16:45 Oxycodone 5 Mg Tablet PO 5 mg Q6HR PRN Administration Severe Breakthrough pain(8-10) Pantoprazole Sodium 40 mg 01/21/24 07:00 01/23/24 06:25 Pantoprazole 40 Mg Tablet PO 40 mg QDAC LINDSAY Administration Sodium Chloride 10 ml 01/21/24 17:00 01/23/24 00:55 Sodium Chloride Flush 0.9% 10 Ml Syringe IVP 10 ml 0100,0900,1700 [facility] Administration - Physical Exam Comments/Other: alert, oriented, sitting upright in bed, no acute distress 2 mepilex dressings are dry and intact to the right hip without hematoma or drainage Neurovascular intact to the right lower extremity ABX Reporting Has patient been on IV antibiotics over the past 48 hours?: No Impression/Plan - Problem List Problem List: 83 year old female is post operative day 2 from an open reduction internal fixation of the right hip with intramedullary nail and hip screws by Dr Grant on 01/21/[address] [facility]. She is recovering well and has been up to chair and is tolerating oral diet. Pain is well controlled with current regimen and she is looking forward to discharge. No acute events overnight. Plan: - DVT prophylaxis with 81 mg of aspirin twice daily for 6 weeks, SCDs in hospital - Physical and occupational therapy evaluation today and assessment for discharge home vs SNF. Patient prefers to return to [facility]. - Pain control with scheduled tylenol and celebrex with oxycodone as needed - Weight bearing as tolerated with front wheeled walker at all times - Follow up with orthopedic clinic. Orthopedic phone number provided to patient to schedule follow up. [phone]. - Mepilex dressing to remain in place. Dermabond and absorbable sutures used for closure. No suture or staple removal needed. - Bowel regimen as needed - Appreciate expertise of hospitalist team for comanaged medical care
[2024-01-23] MEDS: FUROSEMIDE 20 MG TABLET PO SCH (08:47)
[2024-01-23] MEDS: DOCUSATE SODIUM 100 MG CAPSULE PO PRN (08:48)
[2024-01-23] MEDS: PSYLLIUM PACKET PO SCH (08:48)
[2024-01-23] MEDS: polyethylene glycoL 3350 17 GM PACKET PO SCH (08:49)
--- NOTE | 2024-01-23 10:40 | PROVIDER PROGRESS NOTE ---
Assessment/Plan - Problem List (1) Fractured femoral neck Qualifiers: Encounter type: initial encounter Fracture type: closed Laterality: right Qualified Code(s): S72.001A - Fracture of unspecified part of neck of right femur, initial encounter for closed fracture Assessment/Plan: (1) Fractured femoral neck Conclusion/Plan: --Right-sided femoral neck fracture s/p ORIF on 01/20. -- PT/OT consulted. -- DVT prophylaxis per orthopedic surgery. Currently on ASA. (2) Tobacco dependence Conclusion/Plan: --Nicotine patch ordered. (3) Hypoxia Assessment/Plan: --Resolved. CXR showed no pathology. Dispo: Anticipate discharge to SNF when placement is found. - Current Meds Current Meds: Current Medications Generic Name Dose Route Start Last Admin Trade Name Freq PRN Reason Stop Dose Admin Acetaminophen 1,000 mg 01/22/24 06:00 01/23/24 06:25 Acetaminophen 500 Mg Tablet PO 1,000 mg TID LINDSAY Administration Aspirin 81 mg 01/21/24 21:00 01/23/24 08:48 Aspirin Ec 81 Mg Tablet PO 81 mg BID LINDSAY Administration Celecoxib 200 mg 01/21/24 21:00 01/23/24 08:47 Celecoxib 100 Mg Capsule PO 200 mg BID LINDSAY Administration Docusate Sodium 100 mg 01/21/24 13:48 01/23/24 08:48 Docusate Sodium 100 Mg Capsule PO 100 mg BID PRN Administration Constipation Furosemide 20 mg 01/23/24 09:00 01/23/24 08:47 Furosemide 20 Mg Tablet PO 20 mg DAILY LINDSAY Administration Hydromorphone HCl 1 mg 01/20/24 18:55 01/22/24 00:41 Hydromorphone 1 Mg/Ml Carpuject IVP 1 mg Q2H PRN Administration pain >4 Nicotine 1 patch 01/22/24 09:00 01/23/24 08:47 Nicotine 7 Mg Patch TOP 1 patch DAILY LINDSAY Administration Oxycodone HCl 5 mg 01/21/24 13:48 01/22/24 16:45 Oxycodone 5 Mg Tablet PO 5 mg Q6HR PRN Administration Severe Breakthrough pain(8-10) Pantoprazole Sodium 40 mg 01/21/24 07:00 01/23/24 06:25 Pantoprazole 40 Mg Tablet PO 40 mg QDAC LINDSAY Administration Polyethylene Glycol 17 gm 01/23/24 09:00 01/23/24 08:49 Polyethylene Glycol 3350 17 Gm Packet PO Not Given DAILY LINDSAY Psyllium Hydrophilic Mucilloid 1 packet 01/23/24 09:00 01/23/24 08:48 Psyllium Packet PO 1 packet DAILY LINDSAY Administration Sodium Chloride 10 ml 01/21/24 17:00 01/23/24 08:48 Sodium Chloride Flush 0.9% 10 Ml Syringe IVP 10 ml 0100,0900,1700 LINDSAY Administration - Lab Result Fish Bone Diagrams: 01/23/24 05:21 01/23/24 05:21 - Additional Planning My Orders: My Active Orders 01/23/24 09:00 Furosemide [Lasix] 20 mg PO DAILY Psyllium [Metamucil] 1 packet PO DAILY 01/24/24 05:00 BMP - BASIC METABOLIC PANEL [CHEM] DAILYLAB CBC [CBC - COMP BLD CT W/AUTO DIFF] [HEME] DAILYLAB 01/25/24 05:00 BMP - BASIC METABOLIC PANEL [CHEM] DAILYLAB CBC [CBC - COMP BLD CT W/AUTO DIFF] [HEME] DAILYLAB 01/26/24 05:00 BMP - BASIC METABOLIC PANEL [CHEM] DAILYLAB CBC [CBC - COMP BLD CT W/AUTO DIFF] [HEME] DAILYLAB 01/27/24 05:00 BMP - BASIC METABOLIC PANEL [CHEM] DAILYLAB CBC [CBC - COMP BLD CT W/AUTO DIFF] [HEME] DAILYLAB Subjective - Subjective Patient Reports: Feeling Better, Resting Comfortably, No Complaints, Other (Improved. Producing urine. Waiting for a BM. Pain well controlled.) Objective Vital Signs: Vital Signs - 24 hr 01/22/24 01/22/24 01/22/24 11:09 13:00 13:19 Temperature 37.1 C Heart Rate [ 92 Brachial] Heart Rate [ 97 Sitting] Heart Rate [ 101 H Supine] Respiratory 18 Rate Blood Pressure 120/53 L [Right Brachial artery] Blood Pressure 138/62 H [Sitting] Blood Pressure 128/71 [Standing] Blood Pressure 125/51 L [Supine] O2 Saturation 94 O2 Saturation [ 96 Sitting] O2 Saturation [ 96 Supine] If not protocol 1.5 : Oxygen Flow, liters/minute 01/22/24 01/22/24 01/23/24 15:35 21:00 00:19 Temperature 38 C H 37.5 C 36.7 C Heart Rate [ 91 87 89 Brachial] Heart Rate [ Sitting] Heart Rate [ Supine] Respiratory 16 16 18 Rate Blood Pressure 141/60 H 113/48 L 109/53 L [Right Brachial artery] Blood Pressure [Sitting] Blood Pressure [Standing] Blood Pressure [Supine] O2 Saturation 96 94 96 O2 Saturation [ Sitting] O2 Saturation [ Supine] If not protocol : Oxygen Flow, liters/minute 01/23/24 01/23/24 05:00 08:00 Temperature 36.6 C 36.9 C Heart Rate [ 83 83 Brachial] Heart Rate [ Sitting] Heart Rate [ Supine] Respiratory 18 20 Rate Blood Pressure 150/63 H 160/66 H [Right Brachial artery] Blood Pressure [Sitting] Blood Pressure [Standing] Blood Pressure [Supine] O2 Saturation 95 96 O2 Saturation [ Sitting] O2 Saturation [ Supine] If not protocol : Oxygen Flow, liters/minute Oxygen O2 Source Room air I&O (Last 24 Hrs): Intake and Output Totals x24h 01/21/24 01/22/24 01/23/24 23:59 23:59 23:59 Intake Total 2500 2260 240 Output Total 150 611 550 Balance 2350 1649 -310 General: Alert, Oriented x3, Cooperative, No acute distress Cardiovascular: Regular rate, Normal S1, Normal S2, No murmurs Respiratory: Chest non-tender, No respiratory distress, Breath sounds nml Abdomen: Normal bowel sounds, Soft, No tenderness, No hepatospenomegaly, No masses - Results Results: Laboratory Results WBC 10.9 x10^3/uL (4.8-10.8) H 01/23/24 05:21 RBC 3.06 10^6/uL (4.20-5.40) L 01/23/24 05:21 Hgb 9.3 g/dL (12.0-16.0) L 01/23/24 05:21 Hct 29.0 % (37.0-47.0) L 01/23/24 05:21 MCV 94.8 fL (81.0-99.0) 01/23/24 05:21 MCH 30.4 pg (27.0-31.0) 01/23/24 05:21 MCHC 32.1 g/dL (32.0-36.0) 01/23/24 05:21 RDW 13.7 % (12.0-15.0) 01/23/24 05:21 Plt Count 231 10^3/uL (130-450) 01/23/24 05:21 MPV 11.5 fL (7.9-10.8) H 01/23/24 05:21 Neut # (Auto) 6.8 10^3/uL (1.5-6.6) H 01/23/24 05:21 Lymph # (Auto) 2.5 10^3/uL (1.5-3.5) 01/23/24 05:21 Door # (Auto) 1.3 10^3/uL (0.0-1.0) H 01/23/24 05:21 Eos # (Auto) 0.3 10^3/uL (0.0-0.7) 01/23/24 05:21 Baso # (Auto) 0.1 10^3/uL (0.0-0.1) 01/23/24 05:21 Absolute Nucleated RBC 0.00 x10^3/uL 01/23/24 05:21 Nucleated RBC % 0.0 /100WBC 01/23/24 05:21 Manual Slide Review Indicated 01/22/24 08:10 WBC Morphology (NORMAL) 01/22/24 08:10 Platelet Estimate NORMAL (130-450,000) (NORMAL) 01/22/24 08:10 Platelet Morphology NORMAL APPEARANCE (NORMAL) 01/22/24 08:10 RBC Morph Micro Appear NORMAL APPEARANCE (NORMAL) 01/22/24 08:10 PT 11.5 secs (9.9-12.6) 01/20/24 17:05 INR 1.0 (0.8-1.2) 01/20/24 17:05 Sodium 139 mmol/L (135-145) 01/23/24 05:21 Potassium 4.1 mmol/L (3.5-4.5) 01/23/24 05:21 Chloride 109 mmol/L (101-111) 01/23/24 05:21 Carbon Dioxide 27 mmol/L (21-32) 01/23/24 05:21 Anion Gap 3.0 (6-13) L 01/23/24 05:21 BUN 18 mg/dL (6-20) 01/23/24 05:21 Creatinine 0.8 mg/dL (0.6-1.3) 01/23/24 05:21 Estimated GFR (MDRD) 68 (>89) L 01/23/24 05:21 Glucose 84 mg/dL (74-104) 01/23/24 05:21 Calcium 8.5 mg/dL (8.5-10.3) 01/23/24 05:21 Total Bilirubin 0.6 mg/dL (0.2-1.0) 01/20/24 17:05 AST 12 IU/L (10-42) 01/20/24 17:05 ALT 6 IU/L (10-60) L 01/20/24 17:05 Alkaline Phosphatase 46 IU/L (42-121) 01/20/24 17:05 Total Protein 7.3 g/dL (6.4-8.9) 01/20/24 17:05 Albumin 4.1 g/dL (3.2-5.5) 01/20/24 17:05 Globulin 3.2 g/dL (2.1-4.2) 01/20/24 17:05 Albumin/Globulin Ratio 1.3 (1.0-2.2) 01/20/24 17:05
[2024-01-24 05:55] LABS: CALCIUM 8.7 mg/dL (8.5-10.3); CREATININE 0.7 mg/dL (0.6-1.3); POTASSIUM 3.9 mmol/L (3.5-4.5)
[2024-01-24 06:18] LABS: BASOPHILS # (AUTO) 0.1 10^3/uL (0.0-0.1); BASOPHILS % (AUTO) 0.4 %; EOSINOPHILS # (AUTO) 0.3 10^3/uL (0.0-0.7); EOSINOPHILS % (AUTO) 2.6 %; HCT - HEMATOCRIT 30.8 % (37.0-47.0); HGB - HEMOGLOBIN 9.8 g/dL (12.0-16.0); LYMPHOCYTES # (AUTO) 1.4 10^3/uL (1.5-3.5); LYMPHOCYTES % (AUTO) 10.9 %; MEAN CORPUSCULAR HEMOGLOBIN 29.5 pg (27.0-31.0); MEAN CORPUSCULAR HGB CONC 31.8 g/dL (32.0-36.0); MEAN CORPUSCULAR VOLUME 92.8 fL (81.0-99.0); MEAN PLATELET VOLUME 11.2 fL (7.9-10.8); MONOCYTES % (AUTO) 7.9 %; NEUTROPHILS # (AUTO) 9.7 10^3/uL (1.5-6.6); NEUTROPHILS % (AUTO) 77.9 %; PLT - PLATELET COUNT 284 10^3/uL (130-450); RED BLOOD COUNT 3.32 10^6/uL (4.20-5.40); RED CELL DISTRIBUTION WIDTH 13.7 % (12.0-15.0); WHITE BLOOD COUNT 12.5 x10^3/uL (4.8-10.8)
--- NOTE | 2024-01-24 07:39 | Discharge Plan ---
"Discharge Plan for SNF / CUSTODIAL - Discharge Plan And Transition Orders Problem Reviewed?: Yes Disposition: 03 SNF DC/Xfer Condition: Stable Allergies and Adverse Reactions: Allergies Allergy/AdvReac Type Severity Reaction Status Date / Time No Known Drug Allergies Allergy Verified 01/20/24 16:18 - SNF / CUSTODIAL Transition Orders Admit to (Facility): [facility] Discharge Diagnosis: Right hip fracture Medicare Certification Statement: I certify that [facility] halfway care is medically necessary on a continuing basis for any of the conditions for which she/he is receiving care during hospitalization. Notify PCP of admission and forward orders to primary provider for signature. Weight on admission and: Weekly Call PCP immediately if weight increases by: 5 kg Other Notification Orders: Call PCP immediately if patient develops dyspnea, chest pain/tightness or edema. House Bowel Program: Yes Additional Bowel Program Orders: If no BM after 2 days, nurse may give M.O.M. 30ml PO PRN and/or ducolax Supp 1 [place] and/or OPAL 250mg P.O., and/or senna 1-2 tabs PO. On day 3 nurse may give repeat above order until residents constipation is resolved. Annual Influenza Vaccine (between Mar 28 and October 25): Yes Two-step PPD per [facility] [phone] or approved exception documents: Yes Oxygen Orders: Maintain oxygen greater than 90%. Orthopedic Orders: - DVT prophylaxis with 81 mg of aspirin twice daily for 6 weeks, SCDs in hospital. - Physical and occupational therapy evaluation today and assessment for discharge home vs SNF. Patient prefers to return to [facility]. - Pain control with scheduled tylenol and celebrex with oxycodone as needed. - Weight bearing as tolerated with front wheeled walker at all times. - Follow up with orthopedic clinic. Orthopedic phone number provided to patient to schedule follow up. [phone]. - Mepilex dressing to remain in place. Dermabond and absorbable sutures used for closure. No suture or staple removal needed. - Bowel regimen as needed Medication Orders: PLEASE REFER TO THE DISCHARGE MEDICATION LIST. - Medications New Prescriptions: oxyCODONE [Roxicodone] 5 mg PO Q6HR PRN #15 tab PRN Reason: Severe Breakthrough pain(8-10) Aspirin EC [Ecotrin] 81 mg PO BID #60 tab polyethylene glycoL 3350 [Miralax] 17 gm PO DAILY #30 packet Pantoprazole [Protonix] 40 mg PO QDAC #30 tab Acetaminophen [Tylenol] 1,000 mg PO TID #30 tab - Diet Type: Geriatric Texture: Regular Liquids: Thin May have monthly special meal: Yes - Therapies | Activity Therapy: Evaluation | Treat if indicated: PT, OT, Swallowing / ST Rehabilitation Potential: Maximize functional status, Return to independent living Activity: Activity as Tolerated Follow Up: Follow up with PCP and orthopedic surgery."
[2024-01-24 07:40] VITALS: BP 168/87; O2SAT 96
--- NOTE | 2024-01-24 09:54 | PROVIDER PROGRESS NOTE ---
Subjective - General Admit Date: 01/21/24 Procedure Date: 01/21/24 Post Op Days: 3 Procedure Performed: Right hip ORIF with IM Nail and Hip Screws - Review of Systems Wound/Incisions: positive: Dressing dry and intact - Other Other Information/Narrative: Her pain is under good control to right hip. She is making some progress with physical and Occupational Therapy. She denies nausea or vomiting, chest pain or shortness of breath. Her appetite is fair. Objective - Patient Data Vital Signs: Vital Signs x48h Temp Pulse Resp BP Pulse Ox 01/24/24 07:31 36.7 C 98 18 168/87 H 96 01/24/24 05:12 36.8 C 90 16 170/79 H 95 Intake & Output: Intake and Output Totals x24h 01/22/24 01/23/24 01/24/24 23:59 23:59 23:59 Intake Total 2260 860 200 Output Total 611 950 200 Balance 1649 -90 0 - Lab Results Lab Results: 01/24/24 05:30 01/24/24 05:30 Other Lab Results: Lab Results x24hrs 01/24/24 01/24/24 Range/Units 05:30 05:30 WBC 12.5 H (4.8-10.8) x10^3/uL RBC 3.32 L (4.20-5.40) 10^6/uL Hgb 9.8 L (12.0-16.0) g/dL Hct 30.8 L (37.0-47.0) % MCV 92.8 (81.0-99.0) fL MCH 29.5 (27.0-31.0) pg MCHC 31.8 L (32.0-36.0) g/dL RDW 13.7 (12.0-15.0) % Plt Count 284 (130-450) 10^3/uL MPV 11.2 H (7.9-10.8) fL Neut # (Auto) 9.7 H (1.5-6.6) 10^3/uL Lymph # (Auto) 1.4 L (1.5-3.5) 10^3/uL [place] # (Auto) 1.0 (0.0-1.0) 10^3/uL Eos # (Auto) 0.3 (0.0-0.7) 10^3/uL Baso # (Auto) 0.1 (0.0-0.1) 10^3/uL Absolute Nucleated RBC 0.00 x10^3/uL Nucleated RBC % 0.0 /100WBC Sodium 138 (135-145) mmol/L Potassium 3.9 (3.5-4.5) mmol/L Chloride 105 (101-111) mmol/L Carbon Dioxide 28 (21-32) mmol/L Anion Gap 5.0 L (6-13) BUN 17 (6-20) mg/dL Creatinine 0.7 (0.6-1.3) mg/dL Estimated GFR (MDRD) 80 L (>89) Glucose 101 (74-104) mg/dL Calcium 8.7 (8.5-10.3) mg/dL - Current Medications Current Medications: Current Medications Generic Name Dose Route Start Last Admin Trade Name Freq PRN Reason Stop Dose Admin Acetaminophen 1,000 mg 01/22/24 06:00 01/24/24 05:05 Acetaminophen 500 Mg Tablet PO 1,000 mg TID LINDSAY Administration Aspirin 81 mg 01/21/24 21:00 01/24/24 08:08 Aspirin Ec 81 Mg Tablet PO 81 mg BID LINDSAY Administration Celecoxib 200 mg 01/21/24 21:00 01/24/24 08:08 Celecoxib 100 Mg Capsule PO 200 mg BID LINDSAY Administration Docusate Sodium 100 mg 01/21/24 13:48 01/23/24 08:48 Docusate Sodium 100 Mg Capsule PO 100 mg BID PRN Administration Constipation Furosemide 20 mg 01/23/24 09:00 01/24/24 08:08 Furosemide 20 Mg Tablet PO 20 mg DAILY LINDSAY Administration Hydromorphone HCl 1 mg 01/20/24 18:55 01/22/24 00:41 Hydromorphone 1 Mg/Ml Carpuject IVP 1 mg Q2H PRN Administration pain >4 Nicotine 1 patch 01/22/24 09:00 01/24/24 08:08 Nicotine 7 Mg Patch TOP 1 patch DAILY LINDSAY Administration Oxycodone HCl 5 mg 01/21/24 13:48 01/23/24 13:59 Oxycodone 5 Mg Tablet PO 5 mg Q6HR PRN Administration Severe Breakthrough pain(8-10) Pantoprazole Sodium 40 mg 01/21/24 07:00 01/24/24 05:04 Pantoprazole 40 Mg Tablet PO 40 mg QDAC LINDSAY Administration Polyethylene Glycol 17 gm 01/23/24 09:00 01/24/24 08:10 Polyethylene Glycol 3350 17 Gm Packet PO Not Given DAILY LINDSAY Psyllium Hydrophilic Mucilloid 1 packet 01/23/24 09:00 01/24/24 08:10 Psyllium Packet PO Not Given DAILY LINDSAY Sodium Chloride 10 ml 01/21/24 17:00 01/24/24 08:10 Sodium Chloride Flush 0.9% 10 Ml Syringe IVP 10 ml 0100,0900,1700 LINDSAY Administration - Physical Exam Wound/Incisions: positive: Dressing dry and intact Comments/Other: She is sitting comfortably, talking easily. Her dressing is dry and intact about right hip. She has mild pain with motion of the right hip. There is no clinical deformity to right leg. Neurovascular is intact right leg. Impression/Plan - Problem List Problem List: Status post open duction internal fixation right intertrochanteric hip fracture She is making good progress and would benefit from further skilled to help. She may ambulate as tolerated with a walker on her right leg. The dressing can be removed within a week. There are no sutures to be removed. She can currently shower with dressing in place. She needs a follow-up within 6 weeks. She needs deep venous thrombosis prophylaxis for 6 weeks from the time of surgery. Aspirin 81 mg twice daily can be utilized for deep venous thrombosis prophylaxis. There are no hip precautions since an arthroplasty was not utilized.
--- NOTE | 2024-01-24 10:20 | DISCHARGE SUMMARY ---
Discharge Summary Admit Date: 01/21/24 Discharge Date: 01/24/24 Discharging Provider: Sayda Smith Code Status: Do Not Attempt Resuscitation Condition at Discharge: Good Discharge Disposition: SNF DC/Xfer - HPI History of Present Illness: Patient is an 83-year-old female with past medical history of tobacco dependence who presented to the ED after suffering a ground-level fall resulting in a right leg injury. Upon presentation to the ED imaging with a pelvic CT was performed which revealed a mildly displaced intertrochanteric fracture of the right proximal femur. Orthopedic surgery was consulted and she was taken to the OR where a ORIF was performed. Patient had an estimated blood loss of 50 mL. Her operative course was unremarkable. Had a discussion with her daughter at bedside. Patient is DNR. She would feel more comfortable with assisted placement on discharge. - HOSPITAL COURSE Hospital Course: Patient is an 83-year-old female who presented to the ED after suffering a ground-level fall resulting in a mildly displaced intertrochanteric fracture of the right proximal femur. She underwent an ORIF on 01/20 which was uncomplicated. She was subsequently discharged to a fpc facility. Orthopedic ryder jeanie recommended DVT prophylaxis with aspirin 81 mg twice daily for 6 weeks. She will follow-up with the orthopedic clinic as an outpatient. - ALLERGIES Allergies/Adverse Reactions: Allergies Allergy/AdvReac Type Severity Reaction Status Date / Time No Known Drug Allergies Allergy Verified 01/20/24 16:18 - MEDICATIONS Home Medications: Ambulatory Orders Medication Instructions Recorded Confirmed Acetaminophen [Tylenol] 1,000 mg PO TID #30 tab 01/24/24 Aspirin EC [Ecotrin] 81 mg PO BID #60 tab 01/24/24 Docusate Sodium 100Mg Capsule 100 mg PO BID PRN #30 cap 01/24/24 [Colace 100Mg Capsule] Furosemide [Lasix] 20 mg PO DAILY #30 tab 01/24/24 01/21/24 Pantoprazole [Protonix] 40 mg PO QDAC #30 tab 01/24/24 oxyCODONE [Roxicodone] 5 mg PO Q6HR PRN #15 tab 01/24/24 polyethylene glycoL 3350 [Miralax] 17 gm PO DAILY #30 packet 01/24/24 - PHYSICAL EXAM AT DISCHARGE General Appearance: positive: No acute distress, Alert Respiratory: positive: Chest non-tender, No respiratory distress, Breath sounds nml Cardiovascular: positive: Regular rate & rhythm, No murmur, No gallop Abdomen: positive: Non-tender, No organomegaly, Nml bowel sounds Neurologic/Psychiatric: positive: Oriented x3, CN's nml (2-12) - LABS Result Diagrams: 01/24/24 05:30 01/24/24 05:30 - FOLLOW UP Follow Up: Follow up with orthopedic surgery. - TIME SPENT Time Spent in Discharge (Minutes): 35
== END 2024-01-24 12:08 | DRG 482 ==
LOC: ED 16:03 → MS2 01-21 07:20 → ED 01-21 11:30
PROVIDERS: ADMIT Family Medicine; ATTEND Family Medicine
PROC: 0QS606Z Reposition Right Upper Femur with Intramedullary Internal Fixation Device, Open Approach (ICD-10-PCS; principal; 2024-01-21 11:00)
DX: S72.141A Displaced intertrochanteric fracture of right femur, initial encounter for closed fracture (principal); W18.39XA Other fall on same level, initial encounter; Y93.K1 Activity, walking an animal; Y92.89 Other specified places as the place of occurrence of the external cause; I50.9 Heart failure, unspecified; J44.9 Chronic obstructive pulmonary disease, unspecified; F17.210 Nicotine dependence, cigarettes, uncomplicated; M62.84 Sarcopenia; R09.02 Hypoxemia; Z66 Do not resuscitate; Z79.899 Other long term (current) drug therapy
CPT/HCPCS: 36415; 71045; 72192; 73502; 80048; 80053; 85025; 85610; 93005; 96374; 96375; 97110; 97162; 97166; 97530; 99285; A9270; C1713; J1170; J2372; J2795; J3010; J7120

== ENCOUNTER 2024-02-24 08:58 | Outpatient (CLI) | payer MEDICARE, OTHER ==
--- NOTE | 2024-02-24 18:18 | XRAY Report ---
PROCEDURE: Hip w/Pelvis 2-3V RT INDICATIONS: RIGHT HIP PAIN TECHNIQUE: 2 views of the hip were acquired. COMPARISON: CT pelvis dated 01/20/2024 and intraoperative fluoroscopic images dated 01/21/2024. FINDINGS: Bones: Patient is status post internal fixation of previously noted right proximal femoral intertroc hanteric fracture. Surgical hardware position is unchanged from previous study. No evidence of hardwa re loosening or failure. Right hip alignment is near-anatomic. No new fracture or dislocation. 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 No evidence of avascular necrosis of femoral head. No susp icious bony lesions. Soft tissues: No suspicious soft tissue calcifications or masses. IMPRESSION: Post-ORIF changes in right proximal femur with anatomic right hip alignment. No gross hardware loosen ing or failure. No new fracture or dislocation. Reviewed by: Sunny Gonzalez MD on 02/24/2024 6:17 PM PDT Approved by: Sunny Gonzalez MD on 02/24/2024 6:17 PM PDT Station ID: [id number]
== END 2024-02-24 08:59 | disposition home or self-care (01) ==
LOC: DI 08:58
PROVIDERS: ATTEND Orthopaedic Surgery
DX: M25.551 Pain in right hip (principal)